=== PATIENT | female | born 1990 | race Caucasian/White ===

== ENCOUNTER 2020-05-14 18:42 | Emergency (ER) | payer BC, MEDICAID ==
[~2020-05-14] VITALS: Ht 162.6 cm; Wt 71.2 kg
[2020-05-14 19:11] VITALS: Ht 162.6 cm; Wt 71.2 kg
[2020-05-14 19:43] VITALS: BP 114/54
== END 2020-05-14 19:42 | disposition home or self-care (01) ==
LOC: ED 18:42
DX: L08.9 Local infection of the skin and subcutaneous tissue, unspecified (principal); F17.210 Nicotine dependence, cigarettes, uncomplicated; Z88.0 Allergy status to penicillin; Z88.2 Allergy status to sulfonamides